=== PATIENT | male | born 1955 | race Caucasian/White ===

== ENCOUNTER 2016-03-28 12:07 | Emergency (ER) | payer OTHER ==
[2016-03-28 12:24] VITALS: BP 126/65; PULSE 50; RESP 18; TEMP 96.8; O2SAT 100
--- NOTE | 2016-03-28 13:13 | UCPHY ---
H & P Time Seen by Provider: 03/28/16 12:30 Patient Type: New HPI/ROS: This patient injured his left ankle rock climbing earlier in an indoor gym. He explains that this morning he was hyper extending his left ankle to try to reach another part of the rock wall when he felt a pop in his ankle and abrupt pain to the lateral aspect. Since that time he has ongoing mild pain at baseline becomes moderate with twisting his ankle or plantar flexion. He is able to walk a straight line without pain. ROS: No numbness or tingling. No foot pain. No other injuries. 5 point ROS is otherwise negative. Past Medical/Surgical History: Otherwise healthy except for mild exercise-induced asthma. Smoking Status: Never smoked Physical Exam: Physical Exam Vital signs are normal. General: No acute distress Eyes: Pupils equal and react to light. Extraocular motions are intact. Lungs: No respiratory distress. Cardiac: Brisk capillary refill is intact throughout. Pulses are 2+ and symmetric in the affected extremity. Extremities: Atraumatic normal except for left ankle Left ankle: Patient has mild tenderness to the posterior aspect of the lateral malleolus extends the inferior aspect with minimal swelling. No ecchymosis. No 5th metatarsal tenderness or medial ankle tenderness. No Achilles tenderness. Anterior drawer is negative for laxity. Tilt test is positive for increase in pain. L. ankle: No rash or pallor. Neuro: Alert and oriented x3 with no sensorimotor deficits. Initial differential diagnosis: Avulsion fracture, sprain, muscle strain/ tendon strain Constitutional: Initial Vital Signs Temperature (C) 36.0 C 03/28/16 12:22 Heart Rate 50 L 03/28/16 12:22 Respiratory Rate 18 03/28/16 12:22 Blood Pressure 126/65 H 03/28/16 12:22 O2 Sat (%) 100 03/28/16 12:22 O2 Delivery Mode Room Air Allergies/Adverse Reactions: No Known Allergies Allergy (Unverified 03/28/16 12:22) Home Medications: Medication Instructions Recorded Albuterol [Proventil Neb] 03/28/16 MDM/Departure - MDM Diagnostics: Ankle x-ray: No fracture by my interpretation ED Course/Re-evaluation: I counseled the patient regarding ankle sprain he is placed in a stirrup splint. I counseled him regarding rehab exercises as well. - Depart Disposition: Home, Routine, Self-Care Clinical Impression: Ankle sprain Qualifiers: Encounter type: initial encounter Involved ligament of ankle: unspecified ligament Laterality: left Qualified Code(s): S93.402A - Sprain of unspecified ligament of left ankle, initial encounter Condition: Good Instructions: Ankle Sprain (ED) Additional Instructions: Diagnosis: Ankle sprain Plan: Ibuprofen 400 600 mg every 6 hours for pain and swelling until symptoms resolve. Tylenol in addition if needed. Splint until your symptoms resolve. When you can bear weights and walk without any significant pain, then start rehabilitation exercises. These rehab. exercises will include gentle stretches the 4 directions, "the alphabet", and manual resistance exercises in the 4 directions. Continue these exercises for the next several months revealed to rebuild your ankle strength. If your ankle is not improving with the above plan or for worsening symptoms call orthopedic M.D. for followup appointment. Referrals: NONE *PRIMARY CARE P,. [Primary Care Provider] - As per Instructions Nagi Núñez MD [Medical Doctor] - As per Instructions - PQRS PQRS Measurement: NA
== END 2016-03-28 13:24 | disposition home or self-care (01) ==
LOC: CED 12:07
DX: S93.402A Sprain of unspecified ligament of left ankle, initial encounter (principal); Y93.31 Activity, mountain climbing, rock climbing and wall climbing
CPT/HCPCS: 73610-PO; G0463-PO; L4350